=== PATIENT | male | born 1945 | race Caucasian/White ===

== ENCOUNTER 2016-07-22 00:15 | Emergency (ER) | payer OTHER ==
[~2016-07-22] VITALS: Ht 185.4 cm; Wt 107.2 kg
[2016-07-22] MEDS ORDERED: SIMV20TA3 PO (00:51)
[2016-07-22] MEDS ORDERED: LISI5TAB7 PO (00:51)
[2016-07-22] MEDS ORDERED: CARV6.252 PO (00:51)
[2016-07-22] MEDS ORDERED: MORPHINE SULFATE 4 MG/ML, 1ML IVPush PRN (01:30)
[2016-07-22] MEDS ORDERED: SODIUM CHLORIDE 0.9% 1,000ML IVBOLUS ONE (01:30)
[2016-07-22] MEDS ORDERED: ONDANSETRON 2MG/ML, 2ML IVPush ONE ×2 (01:30→05:00)
[2016-07-22 01:43] LABS: ASPARTATE AMINO TRANSFERASE 24 U/L (15-37); BLOOD UREA NITROGEN 16 mg/dL (7-18)
[2016-07-22] MEDS ORDERED: METRONIDAZOLE PMX 500MG/100ML 100 ML IV ONE (03:30)
[2016-07-22] MEDS ORDERED: CIPROFLOXACIN/PMX 400MG/200ML 200 ML IV ONE (03:30)
[2016-07-22] MEDS ORDERED: CIPROFLOXACIN/PMX 400MG/200ML 200 ML ONE (03:41)
[2016-07-22] MEDS ORDERED: METRONIDAZOLE PMX 500MG/100ML 100 ML ONE (03:41)
[2016-07-22] MEDS ORDERED: ONDANSETRON 2MG/ML, 2ML ONE (04:40)
[2016-07-22] MEDS ORDERED: OMNIPAQUE 350 MG/ML, 100ML BOTTLE ONE (05:20)
[2016-07-22 06:40] VITALS: BP 103/61
== END 2016-07-22 06:44 | disposition home or self-care (01) ==
LOC: ED 02:56
DX: A09 Infectious gastroenteritis and colitis, unspecified (principal); R10.32 Left lower quadrant pain; R19.7 Diarrhea, unspecified
CPT/HCPCS: 36415; 74177; 80053; 83690; 85025; 96361; 96365; 96366; 96368; 96375; 99285; J0744; J2405; J7030; Q9967

== ENCOUNTER → 2019-10-15 | Outpatient (CLI) | payer MEDICARE, OTHER ==
[~2019-10-15] MED LIST: CARV6.252 PO; LISI5TAB7 PO; SIMV20TA19 PO
== END | disposition home or self-care (01) ==
LOC: RAD 07:28
PROVIDERS: ATTEND Family Medicine
DX: K44.9 Diaphragmatic hernia without obstruction or gangrene (principal); K27.9 Peptic ulcer, site unspecified, unspecified as acute or chronic, without hemorrhage or perforation
CPT/HCPCS: 74240